=== PATIENT | male | born 1960 | race Caucasian/White ===

== ENCOUNTER 2016-10-13 12:36 | Emergency (ER) | payer MEDICAID ==
[2016-10-13 12:49] VITALS: TEMP 98.1
[2016-10-13 13:23] LABS: % IMMATURE GRANULYOCYTES 0.3 % (0.0-1.1); ABSOLUTE IMMATURE GRANULOCYTES 0.02 10^3/uL (0.00-0.10); ADD DIFF? NO; ADD MORPH? NO; ADD SCAN? NO; ATYPICAL LYMPHOCYTE FLAG 0 (0-99); FRAGMENT RBC FLAG 0 (0-99); HEMATOCRIT 39.2 % (40.0-51.0); LEFT SHIFT FLG 0 (0-99); LIPEMIA HEMOLYSIS FLAG 90 (0-99); MEAN CELL HEMOGLOBIN 31.3 pg (27.9-34.1); MEAN CELL HEMOGLOBIN CONCENTR. 35.7 g/dL (32.4-36.7); MEAN CELL VOLUME 87.5 fL (81.5-99.8); MEAN PLATELET VOLUME 9.1 fL (8.7-11.7); PLATELET CLUMPS FLAG 0 (0-99); PLATELET COUNT 225 10^3/uL (150-400); RED BLOOD CELL COUNT 4.48 10^6/uL (4.40-6.38); RED CELL DISTRIBUTION WIDTH 13.3 % (11.5-15.2)
--- NOTE | 2016-10-13 13:23 | EDPHY ---
H & P Stated Complaint: ETOH, depression and SI - Personal History Current Tetanus/Diphtheria Vaccine: Unsure Current Tetanus Diphtheria and Acellular Pertussis (TDAP): Unsure - Medical/Surgical History Hx Asthma: No Hx Chronic Respiratory Disease: Yes Hx Diabetes: No Hx Cardiac Disease: No Hx Renal Disease: No Hx Cirrhosis: No Hx Alcoholism: Yes Hx HIV/AIDS: No Hx Splenectomy or Spleen Trauma: No Other PMH: Rheumatoid arthiritis, cholecystectomy 2 months ago, Hep C, ETOH, depression, anxiety - Social History Smoking Status: Current every day smoker Time Seen by Provider: 10/13/16 13:23 Constitutional: Initial Vital Signs Temperature (C) 36.7 C 10/13/16 12:45 Heart Rate 82 10/13/16 12:45 Respiratory Rate 18 10/13/16 12:45 Blood Pressure 133/88 H 10/13/16 12:45 O2 Sat (%) 94 10/13/16 12:45 O2 Delivery Mode Room Air O2 (L/minute) 92 Allergies/Adverse Reactions: No Known Allergies Allergy (Verified 02/02/15 11:14) Home Medications: Medication Instructions Recorded GABAPENTIN 03/01/15 Naltrexone Microspheres [Vivitrol] 380 mg IM 07/06/16 predniSONE [prednisone 20mg (RX)] 60 mg PO DAILY #9 tab 07/06/16 Medical Decision Making ED Course/Re-evaluation: CHIEF COMPLAINT: Psychiatric evaluation, "I'm having bad dreams about dark angles attacking me" HISTORY OF PRESENT ILLNESS: The patient is a homeless 56 y/o male stating, "I' m being attacked by these bad dark angels and I can't fight them off forever." He has a history of alcohol abuse and opiate abuse, but is unable to tell me a specific mental health diagnosis. He has taken Wellbutrin and Gabapentin in the past, but denies being on medication currently. He is somewhat agitated, stating , "am I fucking losing my mind or what? They're real!" He has been unable to sleep much due to his complaints and he is requesting help to "make the demons go away." REVIEW OF SYSTEMS: A 10 point review of systems was performed and is negative with the exception of the elements mentioned in the history of present illness. PHYSICAL EXAM: General Appearance: Alert, well hydrated, appropriate, and non-toxic appearing. Head: Atraumatic without scalp tenderness or obvious injury Eyes: Pupils equal, round, reactive to light and accommodation, EOMI, no trauma , no injection. Ears: Clear bilaterally, no perforation, normal landmarks Nose: Atraumatic, no rhinorrhea, clear. Throat: There is no erythema or exudates, no lesions, normal tonsils, mucus membranes moist. Neck: Supple, 2+ carotid upstroke, nontender, no lymphadenopathy. Respiratory: No retractions, no distress, no wheezes, and no accessory muscle use. Lungs are clear to auscultation bilaterally. Cardiovascular: Regular rate and rhythm, no murmurs, rubs, or gallops. Bilateral carotid, radial, dorsalis pedis, and posterior tibial pulses intact. Good capillary refill all extremities. Gastrointestinal: Abdomen is soft, nontender, non-distended, no masses, no rebound, no guarding, no peritoneal signs. Musculoskeletal: Normal active ROM of all extremities, atraumatic. Neurological: Alert, appropriate, and interactive. The patient has normal DTRs and non-focal cranial nerves, motor, sensory, and cerebellar exam. Skin: No rashes, good turgor, no nodules on palpation. Past medical history: Hepatitis-C, alcohol abuse, opiate abuse, emphysema. Previously on Gabapentin, Wellbutrin Past surgical history: Cholecystectomy Social history: Homeless, alcohol abuse. Dr. Johnson [facility] DIFFERENTIAL DIAGNOSIS: The differential diagnosis for the patient's depression included but was not limited to functional and major depression, situational depression, medication side effect, drugs, and alcohol abuse. MEDICAL DECISION MAKING: Patient is in no acute distress and is hemodynamically stable. 5mg PO Zyprexa administered. We are awaiting psychiatric team's evaluation. Patient has known history of psychiatric disorders and is here for evaluation. (Rudolph Irving) [address] Levin. Pt intoxicated, suuicidal and hallucinating. On detainer. Pending evaluation. 0045 Pt has been seen by mental health [facility]. He is now sober. He is not suicidal. He is not hallucinating. He is magnolia for safety. Plan is to be to discharge to home. She has provided him with resources for outpatient follow-up. (Johny Gregory) - Data Points Laboratory Results: Laboratory Results 10/13/16 13:15 10/13/16 13:15 10/13/16 10/13/16 13:15 12:55 WBC 7.58 10^3/uL (3.80-9.50) RBC 4.48 10^6/uL (4.40-6.38) Hgb 14.0 g/dL (13.7-17.5) Hct 39.2 L % (40.0-51.0) MCV 87.5 fL (81.5-99.8) MCH 31.3 pg (27.9-34.1) MCHC 35.7 g/dL (32.4-36.7) RDW 13.3 % (11.5-15.2) Plt Count 225 10^3/uL (150-400) MPV 9.1 fL (8.7-11.7) Neut % (Auto) 68.6 % (39.3-74.2) Lymph % (Auto) 23.4 % (15.0-45.0) Yell % (Auto) 6.7 % (4.5-13.0) Eos % (Auto) 0.3 L % (0.6-7.6) Baso % (Auto) 0.7 % (0.3-1.7) Nucleat RBC Rel Count 0.0 % (0.0-0.2) Absolute Neuts (auto) 5.21 10^3/uL (1.70-6.50) Absolute Lymphs (auto) 1.77 10^3/uL (1.00-3.00) Absolute Monos (auto) 0.51 10^3/uL (0.30-0.80) Absolute Eos (auto) 0.02 L 10^3/uL (0.03-0.40) Absolute Basos (auto) 0.05 10^3/uL (0.02-0.10) Absolute Nucleated RBC 0.00 10^3/uL (0-0.01) Immature Gran % 0.3 % (0.0-1.1) Immature Gran # 0.02 10^3/uL (0.00-0.10) Sodium 146 H mEq/L (134-144) Potassium 3.9 mEq/L (3.5-5.2) Chloride 107 mEq/L (97-110) Carbon Dioxide 25 mEq/l (22-31) Anion Gap 14 mEq/L (8-16) BUN 9 mg/dL (7-23) Creatinine 0.6 L mg/dL (0.7-1.3) Estimated GFR > 60 Glucose 112 H mg/dL (70-100) Calcium 8.6 mg/dL (8.5-10.4) Urine Opiates Screen NEGATIVE (NEGATIVE) Urine Barbiturates NEGATIVE (NEGATIVE) Ur Phencyclidine Scrn NEGATIVE (NEGATIVE) Ur Amphetamine Screen NEGATIVE (NEGATIVE) U Benzodiazepines Scrn NEGATIVE (NEGATIVE) Urine Cocaine Screen NEGATIVE (NEGATIVE) U Marijuana (THC) Screen NON-NEGATIVE H (NEGATIVE) Ethyl Alcohol 280 H mg/dL (0-10) Medications Given: Discontinued Medications Lorazepam (Ativan) 1 mg PO EDNOW ONE Stop: 10/13/16 22:20 Last Admin: 10/13/16 22:20 Dose: 1 mg Olanzapine (Zyprexa) 5 mg PO ONCE ONE Stop: 10/13/16 13:48 Last Admin: 10/13/16 13:54 Dose: 5 mg Departure - Departure Disposition: Home, Routine, Self-Care Clinical Impression: Alcoholic intoxication Condition: Good Instructions: Alcohol Intoxication (ED) Additional Instructions: Please seek medical help to decrease your alcohol consumption. Return to the emergency department for any concerns. Referrals: Kaykay Rios, PAC [Primary Care Provider] - As per Instructions [facility] [Outside] - As per Instructions Report Scribed for: Rduolph Irving Report Scribed by: Roxanna Mensah Date of Report: 10/13/16 Time of Report: 13:48
[2016-10-13 13:41] LABS: ANION GAP 14 mEq/L (8-16); CALCIUM 8.6 mg/dL (8.5-10.4); CARBON DIOXIDE 25 mEq/l (22-31); CHLORIDE 107 mEq/L (97-110); CREATININE 0.6 mg/dL (0.7-1.3); ETHANOL SERUM 280 mg/dL (0-10); GLOMERULAR FILTRATION RATE > 60; GLUCOSE 112 mg/dL (70-100); POTASSIUM 3.9 mEq/L (3.5-5.2); SODIUM 146 mEq/L (134-144)
[2016-10-13] MEDS ORDERED: OLANZapine 2.5 MG TAB PO ONE (13:47)
[2016-10-13] MEDS ORDERED: LORazepam 1 MG TAB ONE (22:18)
[2016-10-13] MEDS ORDERED: LORazepam 1 MG TAB PO ONE (22:19)
[2016-10-14 00:47] VITALS: BP 155/92; PULSE 75; RESP 16; O2SAT 93
[2016-10-14] MEDS ORDERED: LORAZEPAM 1 MG PREPACK#4 BTL TAKEHOME ONE ×2 (00:48→00:49)
== END 2016-10-14 01:08 | disposition home or self-care (01) ==
LOC: EDUNIT#
DX: F10.129 Alcohol abuse with intoxication, unspecified (principal); F17.200 Nicotine dependence, unspecified, uncomplicated
CPT/HCPCS: G0477; G0480

== ENCOUNTER 2016-12-14 20:39 | Emergency (ER) | payer MEDICAID ==
--- NOTE | 2016-12-14 21:01 | EDPHY ---
H & P Stated Complaint: n/v Time Seen by Provider: 12/14/16 21:01 - Personal History Current Tetanus/Diphtheria Vaccine: Unsure Current Tetanus Diphtheria and Acellular Pertussis (TDAP): Unsure - Medical/Surgical History Hx Asthma: No Hx Chronic Respiratory Disease: Yes Hx Diabetes: No Hx Cardiac Disease: No Hx Renal Disease: No Hx Cirrhosis: No Hx Alcoholism: Yes Hx HIV/AIDS: No Hx Splenectomy or Spleen Trauma: No Other PMH: Rheumatoid arthiritis, cholecystectomy 2 months ago, Hep C, ETOH, depression, anxiety - Social History Smoking Status: Current every day smoker Constitutional: Initial Vital Signs Temperature (C) 36.6 C 12/14/16 20:40 Heart Rate 63 12/14/16 20:40 Respiratory Rate 18 12/14/16 20:40 Blood Pressure 101/78 12/14/16 20:40 O2 Sat (%) 92 12/14/16 20:40 O2 Delivery Mode Room Air Allergies/Adverse Reactions: No Known Allergies Allergy (Verified 12/14/16 20:53) Home Medications: Medication Instructions Recorded AZITHROMYCIN [Z-PACK] 250 mg PO DAILY #1 packet 12/14/16 Medical Decision Making ED Course/Re-evaluation: CHIEF COMPLAINT: Alcohol intoxication. HISTORY OF PRESENT ILLNESS: The patient is a chronic alcoholic. Patient drinks on a daily basis and obtains whatever alcohol is available. Patient was found by bystanders who called EMS system. Patient has had multiple ER visits over the last several years for the same complaint. Patient denies any injuries denies loss of consciousness denies any recent trauma. Patient denies co-ingestion. Patient denies suicidal or homicidal behavior. His only complaint today is cold symptoms over the past few weeks. No fever, chills, myalgia, vomiting, diarrhea. REVIEW OF SYSTEMS: A 10 point review of systems was performed and is negative with the exception of the elements mentioned in the history of present illness. PHYSICAL EXAM: General Appearance: Alert, well hydrated, appropriate, and non-toxic appearing. Head: Atraumatic without scalp tenderness or obvious injury Eyes: Pupils equal, round, reactive to light and accommodation, EOMI, no trauma , no injection. Ears: Clear bilaterally, no perforation, normal landmarks Nose: Atraumatic, no rhinorrhea, clear. Throat: There is no erythema or exudates, no lesions, normal tonsils, mucus membranes moist. Neck: Supple, 2+ carotid upstroke, nontender, no lymphadenopathy. Respiratory: No retractions, no distress, no wheezes, and no accessory muscle use. Rhonchorous lungs. Cardiovascular: Regular rate and rhythm, no murmurs, rubs, or gallops. Bilateral carotid, radial, dorsalis pedis, and posterior tibial pulses intact. Good capillary refill all extremities. Gastrointestinal: Abdomen is soft, nontender, non-distended, no masses, no rebound, no guarding, no peritoneal signs. Musculoskeletal: Normal active ROM of all extremities, atraumatic. Neurological: Alert, appropriate, and interactive. The patient has normal DTRs and non-focal cranial nerves, motor, sensory, and cerebellar exam. Skin: No rashes, good turgor, no nodules on palpation. PAST MEDICAL HISTORY: RA, depression. PAST SURGICAL HISTORY: Cholecystectomy. SOCIAL HISTORY: Alcoholism. DIAGNOSTICS/PROCEDURES/CRITICAL CARE TIME: DIFFERENTIAL DIAGNOSIS: The differential diagnosis includes but is not limited to alcohol intoxication, benzodiazepine abuse, polysubstance abuse. MEDICAL DECISION MAKING: I serially examined this patient since the patient's arrival here in the emergency department. The patient continues to become more and more sober with each examination. I serially questioned the patient and the patient's story given initially has not changed. The patient still denies any trauma, any head injury, and any illicit drug use. At this point, the patient is walking the department freely and is clinically sober. We're discharging the patient to the [facility] in stable condition. The patient is complaining of cold symptoms over the past few weeks. He will be given 500mg PO Azithromycin and 1mg PO Ativan prior to being discharged to the [facility]. - Data Points Medications Given: Discontinued Medications Ondansetron HCl (Zofran) 4 mg IVP EDNOW ONE Stop: 12/14/16 21:30 Last Admin: 12/14/16 21:31 Dose: 4 mg Departure - Departure Disposition: Home, Routine, Self-Care Clinical Impression: Bronchitis Alcohol intoxication Qualifiers: Complication of substance-induced condition: uncomplicated Qualified Code(s): F10.120 - Alcohol abuse with intoxication, uncomplicated Condition: Good Instructions: Alcohol Intoxication (ED), Acute Bronchitis (ED) Additional Instructions: Take Azithromycin as prescribed. Follow up at the [facility]. Return for any serious worsening of condition. Referrals: [facility] [Outside] - As per Instructions Prescriptions: AZITHROMYCIN [Z-PACK] 250 mg PO DAILY #1 packet Report Scribed for: Rudolph Irving Report Scribed by: Ishaan Rocha Date of Report: 12/14/16 Time of Report: 21:32
[2016-12-14] MEDS ORDERED: ONDANSETRON 4 MG/2 ML VIAL ONE (21:26)
[2016-12-14] MEDS ORDERED: ONDANSETRON 4 MG/2 ML VIAL IVP ONE (21:29)
[2016-12-14] MEDS ORDERED: LORazepam 2 MG/ML INJ IVP ONE (21:35)
[2016-12-14] MEDS ORDERED: AZITHROMYCIN 250 MG TAB PO ONE (21:35)
[2016-12-14] MEDS ORDERED: CHLORDIAZEPOXIDE 25MG PREPK#6 BTL TAKEHOME ONE (21:36)
[2016-12-14 22:03] VITALS: BP 118/89; PULSE 62; RESP 16; TEMP 98.2; O2SAT 93
== END 2016-12-14 22:03 | disposition home or self-care (01) ==
LOC: EDUNIT#
DX: F10.120 Alcohol abuse with intoxication, uncomplicated (principal); J20.9 Acute bronchitis, unspecified; F17.200 Nicotine dependence, unspecified, uncomplicated
CPT/HCPCS: 96374; J2405

== ENCOUNTER 2017-01-14 17:02 | Emergency (ER) | payer MEDICAID ==
[2017-01-14 17:15] VITALS: RESP 16
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
[2017-01-14 18:31] VITALS: BP 116/85; PULSE 88; TEMP 98.2; O2SAT 90
== END 2017-01-14 18:30 | disposition home or self-care (01) ==
LOC: EDUNIT#
DX: S39.94XA Unspecified injury of external genitals, initial encounter (principal); F17.200 Nicotine dependence, unspecified, uncomplicated; Y04.8XXA Assault by other bodily force, initial encounter

== ENCOUNTER → 2017-07-07 | Outpatient (CLI) | payer MEDICAID | LOC: FIMAGING 08:15 | PROVIDERS: ATTEND Internal Medicine | DX: R16.0 Hepatomegaly, not elsewhere classified (principal); B18.2 Chronic viral hepatitis C ==

== ENCOUNTER → 2017-10-06 | Outpatient (CLI) | payer MEDICAID | LOC: FIMAGING 10:10 | PROVIDERS: ATTEND Internal Medicine | DX: R91.1 Solitary pulmonary nodule (principal); R05 Cough ==

== ENCOUNTER → 2018-02-02 | Outpatient (CLI) | payer MEDICAID | LOC: FIMAGING 09:15 | PROVIDERS: ATTEND Internal Medicine | DX: K76.0 Fatty (change of) liver, not elsewhere classified (principal) ==

== ENCOUNTER 2019-01-25 17:56 | Emergency (ER) | payer MEDICAID ==
--- NOTE | 2019-01-25 18:02 | EDPHY ---
General - History Smoking Status: Current every day smoker Time Seen by Provider: 01/25/19 17:57 Narrative: CLINICAL IMPRESSION: Medical clearance for detox ASSESSMENT/PLAN: Patient presents to the emergency department for medical clearance prior to detox at the [facility] for heroin and alcohol abuse. Patient is alert, appropriate, mildly agitated but cooperative. He has no physical complaints. Vitals are stable. Abdomen soft, no chest pain or shortness of breath. He was medically cleared and transported to the [facility] by ambulance. DIFFERENTIAL DX: Differential diagnosis for this patient includes but not limited to alcohol intoxication, alcohol abuse, alcohol withdrawal, other substance abuse or withdrawal, toxidrome or medication overdose, CVA, head trauma, hyponatremia, hypoglycemia or other electrolyte abnormality. ED COURSE: Patient was seen and assessed by myself at 6:00 p.m.. He is alert, oriented, no signs of severe dehydration or withdrawal. Abdomen soft without focal peritoneal findings. No evidence of hematemesis. Medically cleared for discharge to the [facility]. CHIEF COMPLAINT: Med clearance for detox HPI: 58-year-old male presents to the emergency department by EMS for medical clearance before discharge the [facility]. Patient admits to abusing methamphetamine, heroin and alcohol tonight. He has no physical complaints. Denies abdominal pain, hematemesis, diarrhea, chest pain, shortness of breath. PAST MEDICAL HISTORY: See nurse triage notes See triage summary and nurse notes for addition applicable history Pertinent Past Surgical History: None reported Family History: Noncontributory Social History: Abuses illicit drugs and alcohol REVIEW OF SYSTEMS: A full 10 point review of systems was negative except for those mentioned in HPI. PHYSICAL EXAM: General Appearance: Alert, oriented, appropriate, agitated at charge nurse but otherwise cooperative NAD, VSS, no hypoxia. HEENT: Oropharynx clear is no erythema or exudates, no tonsillar hypertrophy or asymmetry. Eyes: [PERRLA, no acute vision change, nystagmus, swelling, discharge, pain or photosensitivity. Neck: Supple, nontender, no lymphadenopathy, no midline pain, FROM, no meningismus. Respiratory: There are no retractions, lungs are clear to auscultation. Cardiac: Regular rate and rhythm, no murmurs or gallops. Gastrointestinal: [Abdomen is soft, nontender Skin: Warm, dry, no rashes, no nodules on palpation. MEDICAL DECISION MAKING: Patient was seen independently. Secondary supervising physician at time of evaluation was: Dr. Temple . Diagnosis: Medical clearance, alcohol and drug abuse . New, requires workup Summary: See Assessment and Plan for summary of ED visit Patient Progress: Medically cleared for discharge to the [facility]. (Ant Sy) Medical Decision Making: I did not see this patient while he was in the emergency department. However his care is discussed with the PA while the patient was in the department. I agree with treatment plan and management (Scar Temple) - Objective Vital Signs: Initial Vital Signs Temperature (C) 36.8 C 01/25/19 18:00 Heart Rate 91 01/25/19 18:00 Respiratory Rate 16 01/25/19 18:00 Blood Pressure 105/80 01/25/19 18:00 O2 Sat (%) 94 01/25/19 18:00 O2 Delivery Mode Room Air Allergies/Adverse Reactions: No Known Allergies Allergy (Verified 01/25/19 18:00) Home Medications: Medication Instructions Recorded AZITHROMYCIN [Z-PACK] 250 mg PO DAILY #1 packet 12/14/16 Departure - Departure Disposition: Home, Routine, Self-Care Clinical Impression: Alcohol abuse, Opioid abuse Condition: Fair Instructions: Abuse of Alcohol (ED) Additional Instructions: You have been medically cleared for discharge to the [facility]. Please go directly there for help with detox. Referrals: NONE *PRIMARY CARE P,. [Primary Care Provider] - As per Instructions [facility],. [Clinic] - As per Instructions
[2019-01-25 18:03] VITALS: BP 105/80
== END 2019-01-25 18:13 | disposition home or self-care (01) ==
LOC: EDUNIT#
DX: F10.10 Alcohol abuse, uncomplicated (principal); F11.10 Opioid abuse, uncomplicated

== ENCOUNTER 2019-02-22 13:36 | Emergency (ER) | payer MEDICAID, OTHER ==
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
[2019-02-22 14:55] VITALS: BP 120/78
== END 2019-02-22 15:05 | disposition home or self-care (01) ==
DX: S42.034A Nondisplaced fracture of lateral end of right clavicle, initial encounter for closed fracture (principal); S22.31XA Fracture of one rib, right side, initial encounter for closed fracture; R42 Dizziness and giddiness; V19.9XXA Pedal cyclist (driver) (passenger) injured in unspecified traffic accident, initial encounter; Y93.55 Activity, bike riding
CPT/HCPCS: A4565

== ENCOUNTER 2019-03-09 11:55 | Emergency (ER) | payer MEDICAID | END 2019-03-09 13:27 | disposition home or self-care (01) ==